=== PATIENT | female | born 1955 | race Caucasian/White ===

== ENCOUNTER 2018-10-12 09:53 | Emergency (ER) | payer BC ==
[2018-10-12] MEDS ORDERED: Albuterol/Ipratropium 3.0-0.5 MG/3 ML Neb Soln NEB ONE (10:00)
--- NOTE | 2018-10-12 10:05 | EDM.PDOC ---
ED HPI GENERAL MEDICAL PROBLEM - General Stated Complaint: COLD SYMPTOMS,COUGH Time Seen by Provider: 10/12/18 10:00 Source of Information: Reports: Patient, Family History Limitations: Reports: No Limitations - History of Present Illness INITIAL COMMENTS - FREE TEXT/NARRATIVE: 63 y.o.w.f smoker, came with her SO to the ed due to cough and SOB. No fever. Pt is "sick"since Saturday. No N/V/D or any other acute medical issues. BP 118/ 68 Pulse ox 93% on RA, Temp 36.9 RR 22 Pulse 106 Onset Date: 10/07/18 Onset Time: 08:00 Duration: Day(s):, Getting Worse, Intermittent Location: Reports: Chest Quality: Reports: Ache Severity: Moderate Improves with: Reports: Rest Worsens with: Reports: Movement Context: Reports: Other (asthma, smokes) Associated Symptoms: Reports: Cough, Shortness of Breath Bilateral Trunk Pain Score (Numeric/FACES): 8 - Related Data Allergies Allergy/AdvReac Type Severity Reaction Status Date / Time No Known Allergies Allergy Verified 08/24/18 16:52 Home Meds: Home Meds Citalopram Hydrobromide [Celexa] 40 mg PO DAILY 08/24/18 [History] Levothyroxine Sodium 88 mcg PO DAILY 08/24/18 [History] Losartan/Hydrochlorothiazide [Losartan-HCTZ 50-12.5 MG] 1 each PO DAILY [History] atorvaSTATin Calcium [Atorvastatin Calcium] 20 mg PO DAILY 08/24/18 [History] Albuterol [Proventil HFA] 2 puff INH Q4H PRN #1 inhaler 10/12/18 [Rx] Ciprofloxacin HCl [Cipro] 500 mg PO BID #20 tablet 10/12/18 [Rx] Past Medical History Cardiovascular History: Reports: High Cholesterol ED ROS GENERAL - Review of Systems Review Of Systems: See Below Constitutional: Reports: No Symptoms HEENT: Reports: No Symptoms Respiratory: Reports: Shortness of Breath, Cough, Sputum Cardiovascular: Reports: No Symptoms Endocrine: Reports: No Symptoms GI/Abdominal: Reports: No Symptoms : Reports: No Symptoms Musculoskeletal: Reports: No Symptoms Skin: Reports: No Symptoms Neurological: Reports: No Symptoms Psychiatric: Reports: No Symptoms Hematologic/Lymphatic: Reports: No Symptoms Immunologic: Reports: No Symptoms ED EXAM, GENERAL - Physical Exam Exam: See Below Exam Limited By: Respiratory Distress General Appearance: Alert, WD/WN, Mild Distress Eye Exam: Bilateral Eye: Normal Inspection Ears: Normal External Exam, Normal Canal Ear Exam: Bilateral Ear: Auricle Normal Nose: Normal Inspection, Normal Mucosa, No Blood Throat/Mouth: Normal Inspection, Normal Lips, Normal Voice, No Airway Compromise Head: Atraumatic, Normocephalic Neck: Normal Inspection, Supple, Non-Tender, Full Range of Motion Respiratory/Chest: Chest Non-Tender, Respiratory Distress, Wheezing Cardiovascular: Normal Peripheral Pulses, Regular Rate, Rhythm, No Edema, No Gallop, No JVD, No Murmur, No Rub Peripheral Pulses: 2+: Radial (L) GI/Abdominal: Normal Bowel Sounds, Soft, Non-Tender, No Organomegaly, No Abnormal Bruit, No Mass, Pelvis Stable (Female) Exam: Deferred Rectal (Female) Exam: Deferred Back Exam: Normal Inspection, Full Range of Motion Extremities: Normal Inspection, Normal Range of Motion, Non-Tender, No Pedal Edema, Normal Capillary Refill Neurological: Alert, Oriented, CN II-XII Intact, Normal Cognition, Normal Gait Psychiatric: Normal Affect, Normal Mood Skin Exam: Warm, Dry, Intact, Normal Color, No Rash Lymphatic: No Adenopathy Course - Vital Signs Text/Narrative:: 63 y.o.w.f smoker, came with her SO to the ed due to cough and SOB. No fever. Pt is "sick"since Saturday. No N/V/D or any other acute medical issues. BP 118/ 68 Pulse ox 93% on RA, Temp 36.9 RR 22 Pulse 106 PE: WNWD W F with a prod cough Imaging: Bronchitis Impression: Cough, Asthma, acute bronchitis Tx: Abx. [place], Albuterol nebs Reexam: Improved Pulse ox was 96% on RA on D/C Plan: D/C with instructions Last Recorded V/S: Last Vital Signs Temp 36.9 C 10/12/18 09:55 Pulse 114 H 10/12/18 12:02 Resp 18 10/12/18 12:02 BP 109/69 10/12/18 12:02 Pulse Ox 94 L 10/12/18 12:02 - Orders/Labs/Meds Orders: Active Orders 24 hr Category Date Time Status RT Aerosol Therapy [RC] ASDIRECTED Care 10/12/18 10:01 Active RT Aerosol Therapy [RC] ASDIRECTED Care 10/12/18 11:16 Active CXR [Chest 2V] [CR] Stat Exams 10/12/18 10:00 Taken Meds: Medications Discontinued Medications Generic Name Dose Route Start Last Admin Trade Name Freq PRN Reason Stop Dose Admin Albuterol 2.5 mg 10/12/18 11:15 10/12/18 11:22 Proventil Neb Soln NEB 10/12/18 11:16 2.5 mg ONETIME ONE Administration Albuterol 2.5 mg 10/12/18 11:16 10/12/18 11:22 Proventil Neb Soln NEB 10/12/18 11:17 2.5 mg ONETIME ONE Administration Albuterol/Ipratropium 3 ml 10/12/18 10:00 10/12/18 10:12 Duoneb 3.0-0.5 Mg/3 Ml NEB 10/12/18 10:01 3 ml ONETIME ONE Administration Departure - Departure Time of Disposition: 12:04 Disposition: Home, Self-Care 01 Condition: Good Clinical Impression: Bronchitis, Asthma - Discharge Information Prescriptions: Albuterol [Proventil HFA] 2 puff INH Q4H PRN #1 inhaler PRN Reason: as needed for SOB and cough Ciprofloxacin HCl [Cipro] 500 mg PO BID #20 tablet Instructions: Albuterol inhalation aerosol, Acute Bronchitis, Adult, Easy-to- Read, Albuterol; Ipratropium solution for inhalation Referrals: Yaritza Villalobos, [employer] [Primary Care Provider] - Forms: ED Department Discharge, ED Return to Work/School Form Additional Instructions: Please take the Cipro as recommended, please use the Albuterol as recommended, please follow up as needed with regular MD at clinic or if not improving, come back if your symptoms get worse acutely. Please stop smoking. - My Orders Last 24 Hours: My Active Orders 10/12/18 10:00 CXR [Chest 2V] [CR] Stat 10/12/18 10:01 RT Aerosol Therapy [RC] ASDIRECTED 10/12/18 11:16 RT Aerosol Therapy [RC] ASDIRECTED - Assessment/Plan Last 24 Hours: My Active Orders 10/12/18 10:00 CXR [Chest 2V] [CR] Stat 10/12/18 10:01 RT Aerosol Therapy [RC] ASDIRECTED 10/12/18 11:16 RT Aerosol Therapy [RC] ASDIRECTED
[2018-10-12] MEDS ORDERED: Albuterol 0.083% 2.5 MG/3 ML Neb Soln NEB ONE ×2 (11:15→11:16)
--- NOTE | 2018-10-13 10:50 | CR ---
INDICATION: Cough. CHEST: PA and lateral views of the chest were obtained, 10/12/18 - no comparisons. Evidence of exogenous obesity is noted. The heart is normal in size and shape. There is some minimal calcification in the arch of the aorta. Moderately severe hypertrophic degenerative changes are noted at the upper middle thoracic spine off vertebral bodies anteriorly. Dextroconvex scoliosis of the thoracic spine is moderate. A definite active infiltrate or effusion was not identified. Findings suggesting COPD are noted, including prominent AP diameter and hyperaeration. Only minimal flattening of diaphragm leaves is seen, however. A mild degree of bronchial wall cuffing is noted at the lung bases, however, which could be on the basis of active peribronchial disease, and should be correlated clinically. IMPRESSION: 1. Bronchial wall cuffing at the lung bases could represent fibrosis and/or active peribronchial disease and should be correlated clinically. 2. Otherwise no definite acute process. 3. Probable COPD. 4. DJD spine. 5. Minimal ASD aorta. MTDD
== END 2018-10-12 12:15 | disposition home or self-care (01) ==
LOC: FB.ED 09:53
DX: J20.9 Acute bronchitis, unspecified (principal); J45.909 Unspecified asthma, uncomplicated; Z79.899 Other long term (current) drug therapy
CPT/HCPCS: 71046; 94640; 99283; J7620-GY

== ENCOUNTER 2021-09-25 10:15 | Emergency (ER) | payer MEDICARE, OTHER ==
[2021-09-25] MEDS ORDERED: Albuterol/Ipratropium 3.0-0.5 MG/3 ML Neb Soln NEB ONE (10:47)
[2021-09-25 11:31] LABS: BASE EXCESS VENOUS,POC -5 mmol/L (-2 - 3+); PCO2 VENOUS,POC 37 mmHg (41-51); PH VENOUS,POC 7.34 pH Units (7.32-7.43)
[2021-09-25 12:06] LABS: CORONAVIRUS COVID-19 NAA POSITIVE (NEGATIVE)
[2021-09-25] MEDS ORDERED: Sodium Chloride 0.9% 1,000 ML IV ONE (12:40)
[2021-09-25] MEDS ORDERED: Ketorolac 30 MG/ML SDV IVPUSH ONE (12:56)
[2021-09-25] MEDS ORDERED: Acetaminophen 500 MG Tab PO ONE (12:56)
== END 2021-09-25 15:25 | disposition home or self-care (01) ==
LOC: FB.ED 10:15
DX: U07.1 COVID-19 (principal); J98.01 Acute bronchospasm; E78.00 Pure hypercholesterolemia, unspecified; I10 Essential (primary) hypertension; J44.9 Chronic obstructive pulmonary disease, unspecified; Z72.0 Tobacco use; Z79.899 Other long term (current) drug therapy
CPT/HCPCS: 0241U; 36415; 71045; 80053; 81001; 83605; 83735; 83880; 84484; 85025; 86140; 87040; 93005; 94640; 96374; 99284; A9270; J1885; J7030; J7620-GY